=== PATIENT | male | born 1975 | race Caucasian/White ===

== ENCOUNTER 2024-09-08 23:45 | Emergency (ER) | payer BC, SELFPAY ==
[2024-09-08 23:52] VITALS: BP 141/96; PULSE 78; TEMP 36.3; O2SAT 96; BMI 34.7
[2024-09-08 23:59] LABS: Glucometer 117 mg/dL (74-106)
[2024-09-09] VITALS (11 sets, daily range): BP systolic 110; BP diastolic 89; PULSE 69–78; O2SAT 93–97
--- NOTE | 2024-09-09 00:13 | XR_ITS ---
[address] [address] Patient Name: YOSELIN RICHARDS MRN: [id number] date: 1975 Sex: M Assigned Patient Location: ER Current Patient Location: ED.MAIN Accession/Order Number: [id number] Exam Date: 09/09/2024 00:28 Report Date: 09/09/2024 02:01 At the request of: LARRY MARKER Procedure: XR chest 1V EXAM: XR chest 1V HISTORY: dizzy and diaphoretic COMPARISON: None. TECHNIQUE: AP upright portable chest x-ray. FINDINGS: The heart, mediastinum and pulmonary vascularity are within normal limits. The lungs and pleural spaces are clear. The bony thorax is intact. XR/XR chest 1V IMPRESSION: Nonacute chest Electronically authenticated by: HEIDI FRANKLIN Date: 09/09/2024 02:01
--- NOTE | 2024-09-09 00:13 | ECG_ITS ---
[facility] Test Date: 2024-09-09 Pat Name: YOSELIN RICHARDS Department: Room: - Gender: Male Illustrator Set: : 1975 Requested By: [id number] Order Number: [id number] Reading MD: KELSEY CABELLO Measurements Intervals [place] Rate: 72 P: 17 DE: 160 QRS: 7 QRSD: 104 T: 0 QT: 388 QTc: 413 Interpretive Statements 1100 Sinus rhythm 4068 Nonspecific [place] abnormality 5211 Minimal voltage criteria for LVH, may be normal variant 9130 borderline ECG No previous ECG available for comparison Electronically Signed On 09-09-2024 6:59:52 EST by KELSEY CABELLO
[2024-09-09 00:37] LABS: Basophils Absolute Auto 0.1 10^3/uL (0.0-0.1); Basophils Percent Auto 0.7 % (0.2-2.0); Eosinophils Absolute Auto 0.1 10^3/uL (0.0-0.7); Eosinophils Percent Auto 1.9 % (0.9-7.0); Hemoglobin 15.6 g/dL (14.0-18.0); Immature Granulocytes Abs Auto 0.01 10^3/uL (0.00-0.03); Immature Granulocytes Pct Auto 0.1 % (0.0-0.5); Lymphocytes Absolute Auto 2.1 10^3/uL (1.2-3.8); Lymphocytes Percent Auto 27.7 % (20.5-60.0); Mean Corpuscular HGB Conc 33.2 g/dL (29.9-35.2); Mean Corpuscular Hemoglobin 29.5 pg (25.9-34.0); Mean Corpuscular Volume 88.8 fL (80.0-94.0); Mean Platelet Volume 10.2 fL (9.5-13.5); Monocytes Absolute Auto 0.8 10^3/uL (0.3-0.8); Monocytes Percent Auto 10.9 % (1.7-12.0); Neutrophils Absolute Auto 4.4 10^3/uL (1.4-6.5); Neutrophils Percent Auto 58.7 % (43.0-75.0); Platelet Count 235 10^3/uL (150-450); Red Blood Count 5.29 10^6/uL (4.70-6.10); Red Cell Distribution Width 12.1 % (11.0-15.0); White Blood Count 7.4 10^3/uL (4.0-11.0)
[2024-09-09 00:57] LABS: Alanine Aminotransferase 39 U/L (16-63); Albumin Globulin Ratio 1.1; Albumin Level 3.9 g/dL (3.4-5.0); Alkaline Phosphatase 143 U/L (46-116); Anion Gap 12.3; Aspartate Amino Transferase 20 U/L (15-37); BUN Creatinine Ratio 12.8; Bilirubin Total 0.4 mg/dL (0.2-1.0); Calcium 9.1 mg/dL (8.5-10.1); Carbon Dioxide 25.3 mmol/L (21.0-32.0); Chloride 106 mmol/L (98-107); Estimated GFR (African America >60 (>=60 mL/min/1.73m^2); Estimated GFR (Non-African Ame >60 (>=60 mL/min/1.73m^2); Globulin 3.5 g/dL; Glucose 81 mg/dL (74-106); Lactate/Lactic Acid 1.5 mmol/L (0.4-2.0); Potassium 3.6 mmol/L (3.5-5.1); Sodium 140 mmol/L (136-145); Total Protein 7.4 g/dL (6.4-8.2); Troponin I High Sensitivity <4.0 pg/mL (4.0-76.1)
--- NOTE | 2024-09-09 01:03 | ED.DIZZY1 ---
HPI - Dizziness General Chief Complaint: Dizziness Stated Complaint: DIZZINESS Time Seen by Provider: 09/08/24 23:47 Source: patient Mode of arrival: walk-in Limitations: no limitations History of Present Illness HPI Narrative: This 49-year-old male presents for evaluation of an episode of dizziness and diaphoresis. The patient and his went to [facility] for dinner. They then went to a movie and he had popcorn. After the movie they went home and he was in the bathroom when he suddenly became dizzy and diaphoretic. He was going to bed and his noticed that his shirt was extremely sweaty, she then went into the bathroom and saw a puddle of sweat on the bathroom floor. She is concerned that he is having a heart attack. He does not have any chest pain or shortness of breath. He does not remember if he had any nausea or felt the urge to have a bowel movement when in the bathroom. He has had similar episodes twice in the past. He denies any focal weakness numbness or tingling. He does not have a history of diabetes. He has not had any nausea or vomiting. He states he had some low back pain when he was using the bathroom which has since resolved. He does not have any weakness numbness or tingling. He does not smoke or drink. Related Data Home Medications ?Medication ?Instructions ?Recorded ?Confirmed aripiprazole 15 mg tablet (Abilify) 15 mg PO DAILY 09/08/24 09/08/24 hydroxyzine HCl 10 mg tablet 10 mg PO TID PRN sleep 09/08/24 09/09/24 trazodone 100 mg tablet 100 mg PO DAILY 09/08/24 09/08/24 atorvastatin 20 mg tablet 20 mg PO DAILY 09/09/24 09/09/24 dextroamphetamine-amphetamine ER 10 mg PO BID 09/09/24 09/09/24 10 mg 24hr capsule,extend release (Adderall XR) Allergies Allergy/AdvReac Type Severity Reaction Status Date / Time No Known Drug Allergies Allergy Verified 09/08/24 23:56 Review of Systems ROS Status of ROS 10 or more systems reviewed and unremarkable except as noted in history and below PFSH PFSH Social History Little interest or pleasure in doing things: not at all Feeling down, depressed, or hopeless: not at all Exam Narrative Exam Narrative: Vital signs and Nursing Notes reviewed: Patient is afebrile with a normal pulse, blood pressure is mildly elevated 141/96, he is not hypoxic with pulse ox of 96% on room air General: Awake, alert, oriented, no acute distress, lying comfortably on the stretcher HEENT: Normocephalic atraumatic, mucous membranes are moist and pink, eyes are clear, normal conjunctiva, vision is grossly intact Neck: Supple, no meningeal signs, no anterior or posterior cervical lymphadenopathy Chest: Lungs are clear to auscultation with good air entry, there is no wheezing rhonchi or rales appreciated no accessory muscle use, patient is speaking in complete sentences-no chest wall tenderness to palpation CVS: Regular rate and rhythm S1-S2, no murmurs rubs or gallops, pulses are brisk and equal bilaterally ABD: Soft, nondistended, nontender, no rebound guarding or rigidity, bowel sounds are normal, no pulsatile masses appreciated Extremities: Moving all extremities, no lower extremity tenderness or swelling noted, negative Homans' sign, pulses are brisk and equal bilaterally Skin: Normal in appearance without rash,pallor, petechiae or purpura Neuro: No focal deficits, speech is clear, there is no facial droop, upper and lower extremity strength and sensation is intact Constitutional Vital Signs, click to edit/add: Last Vital Signs Temp 97.4 F L 09/08/24 23:52 Pulse 74 09/09/24 01:49 Resp 18 09/09/24 01:49 BP 110/89 09/09/24 01:49 Pulse Ox 97 09/09/24 01:49 Course Vital Signs Vital signs: Vital Signs Temperature 97.4 F L 09/08/24 23:52 Pulse Rate 78 09/08/24 23:52 Respiratory Rate 16 09/08/24 23:52 Blood Pressure 141/96 H 09/08/24 23:52 Pulse Oximetry 96 09/08/24 23:52 Temperature 97.4 F L 09/08/24 23:52 Pulse Rate 74 09/09/24 01:49 Respiratory Rate 18 09/09/24 01:49 Blood Pressure 110/89 09/09/24 01:49 Pulse Oximetry 97 09/09/24 01:49 MDM - Dizziness MDM Narrative Medical decision making narrative: This 49-year-old male, non-smoker, presents for evaluation of an episode of dizziness and diaphoresis. Patient and his went out to dinner and then went to a movie. After getting home he used the bathroom and became dizzy and diaphoretic. He admits that he does have episodes of dizziness upon changing position. He did not pass out. He denies any chest pain or shortness of breath. He was using the bathroom at the time that this started but does not remember having any abdominal cramps or feeling that he had to have a bowel movement. His physical exam was benign. EKG done upon arrival is a sinus rhythm at 72 bpm with no acute changes. Routine labs were ordered and are reviewed. He has a normal white count and hemoglobin. Glucose was 117 upon arrival. Troponin, D-dimer, electrolytes are all normal. Delta troponin was ordered. He was reevaluated several times and remains hemodynamically stable with no significant complaints. My suspicion is that he had a vasovagal event while on the toilet causing the dizziness and diaphoresis. He does admit that he has had similar symptoms in the past. The patient and his recently moved to this area from [facility] and does not have a local family physician. He will be given referral information for family medicine Delta troponin is also less than 4. He has remained hemodynamically stable in the emergency department without any symptoms. He feels comfortable being discharged home at this time Lab Data Attestation: I reviewed the patient's lab results. Labs: Lab Results 09/08/24 09/09/24 09/09/24 Range/Units 23:57 00:25 00:47 WBC 7.4 (4.0-11.0) 10^3/uL RBC 5.29 (4.70-6.10) 10^6/uL Hgb 15.6 (14.0-18.0) g/dL Hct 47.0 (42.0-54.0) % MCV 88.8 (80.0-94.0) fL MCH 29.5 (25.9-34.0) pg MCHC 33.2 (29.9-35.2) g/dL RDW 12.1 (11.0-15.0) % Plt Count 235 (150-450) 10^3/uL MPV 10.2 (9.5-13.5) fL Neut % (Auto) 58.7 (43.0-75.0) % Lymph % (Auto) 27.7 (20.5-60.0) % [place] % (Auto) 10.9 (1.7-12.0) % Eos % (Auto) 1.9 (0.9-7.0) % Baso % (Auto) 0.7 (0.2-2.0) % Neut # (Auto) 4.4 (1.4-6.5) 10^3/uL Lymph # (Auto) 2.1 (1.2-3.8) 10^3/uL App[place] # (Auto) 0.8 (0.3-0.8) 10^3/uL Eos # (Auto) 0.1 (0.0-0.7) 10^3/uL Baso # (Auto) 0.1 (0.0-0.1) 10^3/uL Abs Immat Gran (auto) 0.01 (0.00-0.03) 10^3/uL Imm/Tot Granulo (auto) 0.1 (0.0-0.5) % D-Dimer <0.19 (<=0.59) mg/L FEU Sodium 140 (136-145) mmol/L Potassium 3.6 (3.5-5.1) mmol/L Chloride 106 (98-107) mmol/L Carbon Dioxide 25.3 (21.0-32.0) mmol/L Anion Gap 12.3 BUN 16.0 (7.0-18.0) mg/dL Creatinine 1.25 (0.70-1.30) mg/dL Est GFR ( Amer) >60 (>=60 mL/min/1.73m^2) Est GFR (Non-Af Amer) >60 (>=60 mL/min/1.73m^2) BUN/Creatinine Ratio 12.8 Glucose 81 (74-106) mg/dL Lactate 1.5 (0.4-2.0) mmol/L Calcium 9.1 (8.5-10.1) mg/dL Total Bilirubin 0.4 (0.2-1.0) mg/dL AST 20 (15-37) U/L ALT 39 (16-63) U/L Alkaline Phosphatase 143 H (46-116) U/L Troponin I High Sens <4.0 L (4.0-76.1) pg/mL Total Protein 7.4 (6.4-8.2) g/dL Albumin 3.9 (3.4-5.0) g/dL Globulin 3.5 g/dL Albumin/Globulin Ratio 1.1 POC Glucose 117 H (74-106) mg/dL 09/09/24 Range/Units 01:18 WBC (4.0-11.0) 10^3/uL RBC (4.70-6.10) 10^6/uL Hgb (14.0-18.0) g/dL Hct (42.0-54.0) % MCV (80.0-94.0) fL MCH (25.9-34.0) pg MCHC (29.9-35.2) g/dL RDW (11.0-15.0) % Plt Count (150-450) 10^3/uL MPV (9.5-13.5) fL Neut % (Auto) (43.0-75.0) % Lymph % (Auto) (20.5-60.0) % [place] % (Auto) (1.7-12.0) % Eos % (Auto) (0.9-7.0) % Baso % (Auto) (0.2-2.0) % Neut # (Auto) (1.4-6.5) 10^3/uL Lymph # (Auto) (1.2-3.8) 10^3/uL [place] # (Auto) (0.3-0.8) 10^3/uL Eos # (Auto) (0.0-0.7) 10^3/uL Baso # (Auto) (0.0-0.1) 10^3/uL Abs Immat Gran (auto) (0.00-0.03) 10^3/uL Imm/Tot Granulo (auto) (0.0-0.5) % D-Dimer (<=0.59) mg/L FEU Sodium (136-145) mmol/L Potassium (3.5-5.1) mmol/L Chloride (98-107) mmol/L Carbon Dioxide (21.0-32.0) mmol/L Anion Gap BUN (7.0-18.0) mg/dL Creatinine (0.70-1.30) mg/dL Est GFR ( Amer) (>=60 mL/min/1.73m^2) Est GFR (Non-Af Amer) (>=60 mL/min/1.73m^2) BUN/Creatinine Ratio Glucose (74-106) mg/dL Lactate (0.4-2.0) mmol/L Calcium (8.5-10.1) mg/dL Total Bilirubin (0.2-1.0) mg/dL AST (15-37) U/L ALT (16-63) U/L Alkaline Phosphatase (46-116) U/L Troponin I High Sens <4.0 L (4.0-76.1) pg/mL Total Protein (6.4-8.2) g/dL Albumin (3.4-5.0) g/dL Globulin g/dL Albumin/Globulin Ratio POC Glucose (74-106) mg/dL ECG Data Attestation: I personally reviewed and interpreted this ECG as follows: (Sinus rhythm at 72 bpm, normal axis normal axis, normal intervals, no acute ST segment elevation or T wave inversion) Discharge Plan Discharge Chief Complaint: Dizziness Clinical Impression: Orthostatic hypotension, Vasovagal episode Patient Disposition: Home, Self-Care Time of Disposition Decision: 01:55 Condition: Good Prescriptions / Home Meds: No Action aripiprazole [Abilify] 15 mg tablet 15 mg PO DAILY trazodone 100 mg tablet 100 mg PO DAILY hydroxyzine HCl 10 mg tablet 10 mg PO TID PRN (Reason: sleep) dextroamphetamine-amphetamine [Adderall XR] 10 mg capsule,extended release 24hr 10 mg PO BID atorvastatin 20 mg tablet 20 mg PO DAILY Print Language: Sinhala Instructions: Near Syncope (ED), Dizziness (ED) Referrals: Physician,Non-Staff, MD [Primary Care Provider] - 1 week
[2024-09-09 01:08] LABS: D Dimer <0.19 mg/L FEU (<=0.59)
[2024-09-09 01:39] LABS: Troponin I High Sensitivity <4.0 pg/mL (4.0-76.1)
== END 2024-09-09 02:04 | disposition home or self-care (01) ==
PROVIDERS: Emergency Provider Emergency Medicine
DX: I95.1 Orthostatic hypotension (principal); R42 Dizziness and giddiness
CPT/HCPCS: 36415; 71045; 80053; 83605; 84484; 85025; 85378; 93005; 99285

== ENCOUNTER 2025-02-12 11:30 | Emergency (ER) | payer BC, SELFPAY ==
[2025-02-12 11:36] VITALS: BP 125/91; PULSE 84; TEMP 36.6; O2SAT 98; BMI 29.5
--- NOTE | 2025-02-12 16:08 | ED.LOWEXI1 ---
HPI HPI - Extremity Injury (Lower) General Chief Complaint: Extremity Injury, Lower Stated Complaint: RT ANKLE, PAIN, NUMBNESS Time Seen by Provider: 02/12/25 11:42 Source: patient Mode of arrival: walk-in History of Present Illness HPI Narrative: The patient is a 49-year-old male with no significant known past medical history although he does have a history of gastric bypass surgery, the patient is coming to us after an initial injury 4 weeks ago for his right ankle he was actually at that time in [place] and [place] and was hiking almost 15 miles every day, apparently the patient continued to hike then and he developed the swelling up to his proximal leg and apparently it did resolve completely, now the patient only have some numbness and tingling of the anterior aspect of the ankle and no pain except for some time in certain position The patient is able to walk with no difficulty, the pain is only there sometimes the anterior of the ankle and the numbness and tingling is continuous since the injury happened. There was no insect bites and the patient denies any other acute concern Related Data Home Medications ?Medication ?Instructions ?Recorded ?Confirmed aripiprazole 15 mg tablet (Abilify) 15 mg PO DAILY 09/08/24 09/08/24 hydroxyzine HCl 10 mg tablet 10 mg PO TID PRN sleep 09/08/24 09/09/24 trazodone 100 mg tablet 100 mg PO DAILY 09/08/24 09/08/24 atorvastatin 20 mg tablet 20 mg PO DAILY 09/09/24 09/09/24 dextroamphetamine-amphetamine ER 10 mg PO BID 09/09/24 09/09/24 10 mg 24hr capsule,extend release (Adderall XR) Allergies Allergy/AdvReac Type Severity Reaction Status Date / Time NSAIDS (Non-Steroidal Allergy Severe gastric Verified 02/12/25 11:42 Anti-Inflamma bypass Review of Systems ROS Status of ROS 10 or more systems reviewed and unremarkable except as noted in history and below PFSH PFSH Social History Little interest or pleasure in doing things: not at all Feeling down, depressed, or hopeless: not at all Exam Narrative Exam Narrative: Nurses notes and vital signs reviewed and patient is not hypoxic. General: Well-appearing and in no apparent distress. Skin: Warm, dry, no pallor noted. No rash. Head: Normocephalic, atraumatic. Neck: Supple, non-tender. Musculoskeletal: normal ROM, no calf or popliteal tenderness, no lower extremity edema/swelling, the patient only have tenderness upon palpation of the anterior aspect of the right ankle with no vascular injury detected good anterior tibial as well as posterior tibial pulses The patient does not have any skin changes Neurological: A&O x4. No cranial nerve dysfunction observed. No truncal ataxia. Moves all extremities. Sensation intact. Psychiatric: Cooperative and interactive. Normal mood and affect. Constitutional Vital Signs, click to edit/add: Last Vital Signs Temp 97.8 F 02/12/25 11:36 Pulse 84 02/12/25 11:36 Resp 16 02/12/25 11:36 BP 125/91 02/12/25 11:36 Pulse Ox 98 02/12/25 11:36 O2 Del Method Room Air 02/12/25 11:36 Course Vital Signs Vital signs: Vital Signs Temperature 97.8 F 02/12/25 11:36 Pulse Rate 84 02/12/25 11:36 Respiratory Rate 16 02/12/25 11:36 Blood Pressure 125/91 02/12/25 11:36 Pulse Oximetry 98 02/12/25 11:36 Oxygen Delivery Method Room Air 02/12/25 11:36 Temperature 97.8 F 02/12/25 11:36 Pulse Rate 84 02/12/25 11:36 Respiratory Rate 16 02/12/25 11:36 Blood Pressure 125/91 02/12/25 11:36 Pulse Oximetry 98 02/12/25 11:36 Oxygen Delivery Method Room Air 02/12/25 11:36 MDM - Extremity Injury (Lower) MDM Narrative Medical decision making narrative: The patient x-ray of the right ankle as well as x-ray of the foot and tibia-fibula on the right side shows no acute pathology The peripheral neuropathy that he is having in the anterior of the ankle could be secondary to pressure on the nerve due to the recent injury and elevation and rest as instructed in addition to avoiding any pressure in the right lower extremity light compression stocking to avoid any pressure on the nerve Regarding the patient's right foot pain that is not consistent he just can follow-up with orthopedic as outpatient The patient also was referred to his primary care doctor because he needs a neurology referral in case the peripheral neuropathy continues the patient might need further evaluation The patient to come back to us in case of any new symptoms or concerns Discharge Plan Discharge Chief Complaint: Extremity Injury, Lower Clinical Impression: Ankle pain Patient Disposition: Home, Self-Care Time of Disposition Decision: 13:18 Condition: Good Mode of Transportation: Private Vehicle Prescriptions / Home Meds: No Action aripiprazole [Abilify] 15 mg tablet 15 mg PO DAILY trazodone 100 mg tablet 100 mg PO DAILY hydroxyzine HCl 10 mg tablet 10 mg PO TID PRN (Reason: sleep) dextroamphetamine-amphetamine [Adderall XR] 10 mg capsule,extended release 24hr 10 mg PO BID atorvastatin 20 mg tablet 20 mg PO DAILY Print Language: Georgian Instructions: Peripheral Neuropathy (ED), Arthralgia (ED), Swollen Joint (ED) Referrals: Physician,Non-Staff, MD [Primary Care Provider] - 1 week Damon Welch MD [Physician, Orthopedics] - 1 week Discharge Date/Time: 02/12/25 13:26
== END 2025-02-12 13:26 | disposition home or self-care (01) ==
PROVIDERS: Emergency Provider Emergency Medicine
DX: M25.572 Pain in left ankle and joints of left foot (principal); M79.671 Pain in right foot; Z98.84 Bariatric surgery status
CPT/HCPCS: 73590; 73610; 73630; 99283